=== PATIENT | male | born 1945 | race Native Hawaiian/Other Pacific Islander ===

== ENCOUNTER 2016-03-13 09:31 | Outpatient (CLI) | payer OTHER ==
[~2016-03-13] VITALS: Ht 177.8 cm; Wt 90.7 kg
[~2016-03-13 09:31] MED LIST: ALLO100T22 PO; AMIT25TA22 PO; APAP/HYDROCO1 TAB PO; CALCIUM 600 + D OR; CELLCEPT500 MG PO; CEPH500C20 PO; DIPH2.5T76 PO; DOK100 M1 PO; FISH OIL1000 M1 PO; LEXAPRO10 MG OR; LORAZEPAM1 MG PO; MAGNESIUM400 MG PO; MECLIZINE25 MG PO; METO50TA27 PO; MULTIVITAMIN PO; NEURONTIN 100M100 MG OR; PANT40TA PO; PERCOCET1 TA1 PO; PROGRAF0.5 MG PO; PROGRAF1 MG PO; SIMV20TA2 PO; WARFARIN5 MG OR
[2016-03-13 09:50] VITALS: BP 154/75; TEMP 98.3
[2016-03-13 10:26] LABS: PLATELET COUNT 155 K/uL (142-355)
[2016-03-13 10:52] LABS: POTASSIUM 4.4 mmol/L (3.6-5.2); SODIUM 141 mmol/L (136-145)
== END 2016-03-13 19:07 | disposition home or self-care (01) ==
LOC: INF 09:31
PROVIDERS: Internal Medicine Nephrology
DX: I10 Essential (primary) hypertension (principal); Z94.0 Kidney transplant status; E56.8 Deficiency of other vitamins; D68.9 Coagulation defect, unspecified; I87.2 Venous insufficiency (chronic) (peripheral)
CPT/HCPCS: 36591; 80053; 80061; 80197; 81000; 82306; 83970; 84439; 84443; 85027; 85610; 96374; J1642

== ENCOUNTER 2016-03-27 09:24 | Outpatient (CLI) | payer OTHER ==
[~2016-03-27] VITALS: Ht 177.8 cm; Wt 90.7 kg
[2016-03-27 10:05] VITALS: BP 142/72; TEMP 98.6
== END 2016-03-27 19:01 | disposition home or self-care (01) ==
LOC: INF 09:24
DX: Z94.0 Kidney transplant status (principal); Z79.899 Other long term (current) drug therapy; Z51.81 Encounter for therapeutic drug level monitoring; I87.2 Venous insufficiency (chronic) (peripheral)
CPT/HCPCS: 36591; 80197; 96374; J1642

== ENCOUNTER 2016-05-06 10:23 | Outpatient (CLI) | payer OTHER ==
[~2016-05-06] VITALS: Ht 177.8 cm; Wt 90.7 kg
[2016-05-06 10:35] VITALS: BP 145/74; TEMP 98.8
[2016-05-06 11:53] LABS: PLATELET COUNT 131 K/uL (142-355)
[2016-05-06 12:14] LABS: POTASSIUM 4.3 mmol/L (3.6-5.2)
== END 2016-05-06 19:13 | disposition home or self-care (01) ==
LOC: INF 10:23
PROVIDERS: Internal Medicine Nephrology
DX: I87.2 Venous insufficiency (chronic) (peripheral) (principal); Z94.0 Kidney transplant status; I10 Essential (primary) hypertension; E78.4 Other hyperlipidemia; D68.8 Other specified coagulation defects
CPT/HCPCS: 36591; 80053; 80197; 82570; 84155; 85027; 85610; 96374; J1642

== ENCOUNTER 2016-05-08 10:28 | Outpatient (CLI) | payer OTHER | END 2016-05-08 21:03 | disposition home or self-care (01) | LOC: RESP 10:28 | DX: R05 Cough (principal) | CPT/HCPCS: 94640; 94664 ==

== ENCOUNTER 2016-06-17 08:12 | Outpatient (CLI) | payer OTHER ==
[~2016-06-17] VITALS: Ht 177.8 cm; Wt 90.7 kg
[2016-06-17 09:00] VITALS: BP 127/65; TEMP 98.2
[2016-06-17 09:19] LABS: PLATELET COUNT 149 K/uL (142-355)
[2016-06-17 09:51] LABS: SODIUM 140 mmol/L (136-145)
== END 2016-06-17 19:05 | disposition home or self-care (01) ==
LOC: INF 08:12
PROVIDERS: Internal Medicine Nephrology
DX: I10 Essential (primary) hypertension (principal); E78.5 Hyperlipidemia, unspecified; Z94.0 Kidney transplant status; D68.9 Coagulation defect, unspecified
CPT/HCPCS: 36591; 80053; 80197; 82570; 84155; 85027; 85610; 96374; J1642

== ENCOUNTER 2016-06-26 08:38 | Outpatient (CLI) | payer OTHER | END 2016-06-26 19:06 | disposition home or self-care (01) | LOC: LABW 08:38 | DX: Z94.0 Kidney transplant status (principal); D68.8 Other specified coagulation defects | CPT/HCPCS: 36415; 80197; 85610 ==

== ENCOUNTER 2016-07-31 10:03 | Outpatient (CLI) | payer OTHER ==
[~2016-07-31] VITALS: Ht 177.8 cm; Wt 90.7 kg
[2016-07-31 10:30] VITALS: BP 138/76; TEMP 98
== END 2016-07-31 10:35 | disposition home or self-care (01) ==
LOC: INF 10:03
DX: I87.2 Venous insufficiency (chronic) (peripheral) (principal); D68.8 Other specified coagulation defects
CPT/HCPCS: 36415; 36591; 85610; 96365; J1642

== ENCOUNTER 2016-09-14 17:34 | Emergency (ER) | payer OTHER ==
[~2016-09-14] VITALS: Ht 177.8 cm; Wt 89.8 kg
[2016-09-14 18:27] LABS: PLATELET COUNT 154 K/uL (142-355)
[2016-09-14 18:55] LABS: PARTIAL THROMBOPLASTIN TIME 50.6 SECONDS (24.5-33.6)
[2016-09-14 20:05] VITALS: BP 148/73; TEMP 98.6
== END 2016-09-14 20:07 | disposition home or self-care (01) ==
LOC: ED 17:34
DX: M79.605 Pain in left leg (principal); M79.604 Pain in right leg
CPT/HCPCS: 36415; 85027; 85610; 85730; 96374; 99284; J1885

== ENCOUNTER 2016-09-19 12:10 | Outpatient (CLI) | payer OTHER | END 2016-09-19 13:10 | disposition home or self-care (01) | LOC: LABW 12:10 | DX: D68.8 Other specified coagulation defects (principal) | CPT/HCPCS: 36415; 85610 ==

== ENCOUNTER 2016-10-02 11:26 | Outpatient (CLI) | payer OTHER ==
[2016-10-02 11:51] LABS: PLATELET COUNT 174 K/uL (142-355)
== END 2016-10-02 19:32 | disposition home or self-care (01) ==
LOC: LABW 11:26
PROVIDERS: Internal Medicine Nephrology
DX: I10 Essential (primary) hypertension (principal); Z94.0 Kidney transplant status; E78.4 Other hyperlipidemia
CPT/HCPCS: 36415; 80053; 80197; 82570; 84155; 85027

== ENCOUNTER 2016-10-09 10:33 | Outpatient (CLI) | payer OTHER ==
[2016-10-09 11:17] LABS: PLATELET COUNT 163 K/uL (142-355)
[2016-10-09 11:45] LABS: POTASSIUM 4.7 mmol/L (3.6-5.2)
== END 2016-10-09 11:35 | disposition home or self-care (01) ==
LOC: LABW 10:33
PROVIDERS: Internal Medicine
DX: D68.8 Other specified coagulation defects (principal); R53.83 Other fatigue
CPT/HCPCS: 36415; 80053; 84443; 85027; 85610

== ENCOUNTER 2016-10-22 11:07 | Outpatient (CLI) | payer OTHER ==
[2016-10-22 11:55] VITALS: BP 122/60; TEMP 98.1
[2016-10-22 11:59] LABS: PLATELET COUNT 128 K/uL (142-355)
[2016-10-22 12:47] LABS: POTASSIUM 4.2 mmol/L (3.6-5.2)
== END 2016-10-22 11:55 | disposition home or self-care (01) ==
LOC: INF 11:07
PROVIDERS: Emergency Medicine
DX: I10 Essential (primary) hypertension (principal); Z94.0 Kidney transplant status; E78.4 Other hyperlipidemia; D68.8 Other specified coagulation defects
CPT/HCPCS: 36591; 80053; 80197; 82570; 84155; 85027; 85610; 96374

== ENCOUNTER 2016-12-10 08:54 | Outpatient (CLI) | payer OTHER ==
[2016-12-10 10:36] LABS: PLATELET COUNT 127 K/uL (142-355)
[2016-12-10 10:43] LABS: POTASSIUM 4.4 mmol/L (3.6-5.2)
== END 2016-12-10 10:30 | disposition home or self-care (01) ==
LOC: INF 08:54
PROVIDERS: Internal Medicine Nephrology
DX: Z94.0 Kidney transplant status (principal); I10 Essential (primary) hypertension; E78.4 Other hyperlipidemia; D68.8 Other specified coagulation defects; R06.02 Shortness of breath
CPT/HCPCS: 36591; 36600; 80053; 80197; 82570; 82805; 84155; 85027; 85610

== ENCOUNTER 2017-01-15 09:59 | Outpatient (CLI) | payer OTHER | END 2017-01-15 11:00 | disposition home or self-care (01) | LOC: LABW 09:59 | DX: I10 Essential (primary) hypertension (principal); Z79.01 Long term (current) use of anticoagulants; Z51.81 Encounter for therapeutic drug level monitoring; Z94.0 Kidney transplant status; D68.8 Other specified coagulation defects | CPT/HCPCS: 36415; 80197; 82550; 84443; 85610 ==

== ENCOUNTER 2017-02-06 11:56 | Outpatient (CLI) | payer OTHER | END 2017-02-06 12:36 | disposition home or self-care (01) | LOC: INF 11:56 | DX: D68.8 Other specified coagulation defects (principal) | CPT/HCPCS: 36591; 85610; 96374 ==

== ENCOUNTER 2017-04-14 09:58 | Outpatient (CLI) | payer OTHER ==
[2017-04-14 10:40] VITALS: BP 144/73; TEMP 97.9
[2017-04-14 11:02] LABS: PLATELET COUNT 149 K/uL (142-355)
== END 2017-04-14 10:45 | disposition home or self-care (01) ==
LOC: INF 09:58
PROVIDERS: Emergency Medicine
DX: Z79.01 Long term (current) use of anticoagulants (principal); Z51.81 Encounter for therapeutic drug level monitoring; Z94.0 Kidney transplant status; I10 Essential (primary) hypertension; D68.8 Other specified coagulation defects
CPT/HCPCS: 36591; 80053; 80061; 80197; 85027; 85610; 96523

== ENCOUNTER 2017-06-05 08:50 | Outpatient (CLI) | payer OTHER ==
[2017-06-05 09:15] VITALS: BP 148/77; TEMP 98
== END 2017-06-05 22:24 | disposition home or self-care (01) ==
LOC: INF 08:50
DX: D68.8 Other specified coagulation defects (principal)
CPT/HCPCS: 36591; 85610; 96374

== ENCOUNTER 2017-07-14 13:13 | Outpatient (CLI) | payer OTHER ==
[2017-07-14 13:40] VITALS: BP 133/70; TEMP 97.7
== END 2017-07-14 14:04 | disposition home or self-care (01) ==
LOC: INF 13:13
DX: I87.2 Venous insufficiency (chronic) (peripheral) (principal); D68.8 Other specified coagulation defects
CPT/HCPCS: 36591; 85610; 96374

== ENCOUNTER 2017-08-17 10:14 | Outpatient (CLI) | payer OTHER ==
[2017-08-17 11:28] LABS: PLATELET COUNT 158 K/uL (142-355)
[2017-08-17 11:45] LABS: POTASSIUM 4.1 mmol/L (3.6-5.2)
== END 2017-08-17 19:45 | disposition home or self-care (01) ==
LOC: INF 10:14
DX: I10 Essential (primary) hypertension (principal); E78.00 Pure hypercholesterolemia, unspecified; Z94.0 Kidney transplant status; D68.8 Other specified coagulation defects
CPT/HCPCS: 36591; 80053; 80061; 80197; 81000; 82570; 84155; 85027; 96374

== ENCOUNTER 2017-11-09 09:37 | Outpatient (CLI) | payer OTHER | END 2017-11-09 23:28 | disposition home or self-care (01) | LOC: INF 09:37 | DX: D68.9 Coagulation defect, unspecified (principal) | CPT/HCPCS: 85610; 96374; J1642 ==

== ENCOUNTER 2017-11-13 13:00 | Outpatient (CLI) | payer OTHER | END 2017-11-13 19:08 | disposition home or self-care (01) | LOC: LABW 13:00 | DX: D68.9 Coagulation defect, unspecified (principal) | CPT/HCPCS: 36415; 85610 ==

== ENCOUNTER 2017-12-11 09:52 | Outpatient (CLI) | payer OTHER | END 2017-12-11 19:26 | disposition home or self-care (01) | LOC: INF 09:52 | DX: I87.2 Venous insufficiency (chronic) (peripheral) (principal); D68.9 Coagulation defect, unspecified | CPT/HCPCS: 85610; 96374; J1642 ==

== ENCOUNTER 2017-12-16 14:23 | Outpatient (CLI) | payer OTHER | END 2017-12-16 21:22 | disposition home or self-care (01) | LOC: RESP 14:23 | DX: R06.00 Dyspnea, unspecified (principal) | CPT/HCPCS: 36600; 82805 ==

== ENCOUNTER 2018-01-06 10:34 | Outpatient (CLI) | payer OTHER ==
[2018-01-06 12:29] LABS: PLATELET COUNT 159 K/uL (142-355)
[2018-01-06 13:00] LABS: POTASSIUM 4.2 mmol/L (3.6-5.2)
== END 2018-01-06 11:03 | disposition home or self-care (01) ==
LOC: INF 10:34
PROVIDERS: Internal Medicine Nephrology
DX: D68.8 Other specified coagulation defects (principal); I87.2 Venous insufficiency (chronic) (peripheral); Z94.0 Kidney transplant status; R53.83 Other fatigue
CPT/HCPCS: 36591; 80053; 80197; 83735; 84443; 85027; 96374

== ENCOUNTER 2018-01-11 12:01 | Outpatient (CLI) | payer OTHER | END 2018-01-11 22:32 | disposition home or self-care (01) | LOC: LABW 12:01 | DX: D68.9 Coagulation defect, unspecified (principal) | CPT/HCPCS: 36415; 85610 ==

== ENCOUNTER 2018-02-22 10:10 | Outpatient (CLI) | payer OTHER ==
[2018-02-22 10:20] VITALS: BP 144/72; TEMP 98.8
== END 2018-02-22 20:22 | disposition home or self-care (01) ==
LOC: INF 10:10
DX: D68.9 Coagulation defect, unspecified (principal)
CPT/HCPCS: 36591; 85610; 96374

== ENCOUNTER 2018-02-24 11:31 | Outpatient (CLI) | payer OTHER | END 2018-02-24 22:10 | disposition home or self-care (01) | LOC: LAB 11:31 | DX: R19.7 Diarrhea, unspecified (principal) | CPT/HCPCS: 82272; 83630; 87015; 87045; 87324; 87328; 87329; 87449; 87507; 87899 ==

== ENCOUNTER 2018-03-17 09:36 | Outpatient (CLI) | payer OTHER | END 2018-03-17 23:00 | disposition home or self-care (01) | LOC: CT 09:36 | DX: M89.8X8 Other specified disorders of bone, other site (principal); R10.2 Pelvic and perineal pain ==

== ENCOUNTER 2018-03-30 16:35 | Outpatient (CLI) | payer OTHER | END 2018-03-30 19:25 | disposition home or self-care (01) | LOC: LABW 16:35 | DX: R19.7 Diarrhea, unspecified (principal) | CPT/HCPCS: 83630; 87015; 87045; 87206; 87324; 87328; 87329; 87449; 87507; 87899 ==

== ENCOUNTER 2018-04-07 09:55 | Outpatient (CLI) | payer OTHER ==
[2018-04-07 11:00] VITALS: BP 147/75; TEMP 98
== END 2018-04-07 11:30 | disposition home or self-care (01) ==
LOC: INF 09:55
DX: D68.9 Coagulation defect, unspecified (principal); Z43.8 Encounter for attention to other artificial openings
CPT/HCPCS: 36591; 85610; 96374

== ENCOUNTER 2018-04-28 08:28 | Outpatient (CLI) | payer OTHER ==
[2018-04-28 08:45] VITALS: BP 156/82; TEMP 97.9
== END 2018-04-28 09:20 | disposition home or self-care (01) ==
LOC: INF 08:28
DX: D68.9 Coagulation defect, unspecified (principal); Z94.0 Kidney transplant status
CPT/HCPCS: 36591; 80197; 85610; 96374

== ENCOUNTER 2018-05-17 08:20 | Outpatient (CLI) | payer OTHER ==
[2018-05-17 13:22] VITALS: BP 157/76; TEMP 97.8
== END 2018-05-17 13:40 | disposition home or self-care (01) ==
LOC: INF 08:20
DX: D68.9 Coagulation defect, unspecified (principal)
CPT/HCPCS: 36591; 85610; 96374

== ENCOUNTER 2018-05-28 09:08 | Outpatient (CLI) | payer OTHER | END 2018-05-28 19:48 | disposition home or self-care (01) | LOC: LABW 09:08 | DX: D68.8 Other specified coagulation defects (principal) | CPT/HCPCS: 36415; 85610 ==

== ENCOUNTER 2018-06-04 07:41 | Outpatient (CLI) | payer OTHER ==
[2018-06-04 08:52] VITALS: BP 145/75; TEMP 98.4
[2018-06-04 09:48] LABS: POTASSIUM 3.7 mmol/L (3.6-5.2)
[2018-06-04 10:01] LABS: PLATELET COUNT 154 K/uL (142-355)
== END 2018-06-04 19:29 | disposition home or self-care (01) ==
LOC: INF 07:41
PROVIDERS: Internal Medicine Nephrology
DX: Z94.0 Kidney transplant status (principal); I10 Essential (primary) hypertension; E78.00 Pure hypercholesterolemia, unspecified; D68.8 Other specified coagulation defects
CPT/HCPCS: 36591; 80053; 80061; 82570; 83970; 84100; 84155; 85027; 85610; 96374

== ENCOUNTER 2018-07-29 11:52 | Outpatient (CLI) | payer OTHER ==
[2018-07-29 13:35] VITALS: BP 137/68; TEMP 97.9
== END 2018-07-29 19:44 | disposition home or self-care (01) ==
LOC: INF 11:52
DX: D68.9 Coagulation defect, unspecified (principal); Z95.828 Presence of other vascular implants and grafts; I87.2 Venous insufficiency (chronic) (peripheral)
CPT/HCPCS: 36591; 85610; 96374

== ENCOUNTER 2018-08-30 10:44 | Outpatient (CLI) | payer OTHER | END 2018-08-30 11:20 | disposition home or self-care (01) | LOC: INF 10:44 | DX: Z95.828 Presence of other vascular implants and grafts (principal); D68.9 Coagulation defect, unspecified | CPT/HCPCS: 36591; 85610; 96374 ==

== ENCOUNTER 2018-10-05 09:03 | Outpatient (CLI) | payer OTHER ==
[2018-10-05 09:10] VITALS: BP 122/78; TEMP 97.8
[2018-10-05 10:32] LABS: PLATELET COUNT 162 K/uL (142-355)
[2018-10-05 10:41] LABS: POTASSIUM 4.1 mmol/L (3.6-5.2)
== END 2018-10-05 09:38 | disposition home or self-care (01) ==
LOC: INF 09:03
PROVIDERS: Family Medicine
DX: Z95.828 Presence of other vascular implants and grafts (principal)
CPT/HCPCS: 36591; 80053; 80197; 82570; 84100; 84155; 85027; 85610; 96374

== ENCOUNTER 2018-10-12 10:05 | Outpatient (CLI) | payer OTHER | END 2018-10-12 23:59 | disposition home or self-care (01) | LOC: LABW 10:05 | DX: D68.8 Other specified coagulation defects (principal) | CPT/HCPCS: 36415; 85610 ==

== ENCOUNTER 2018-10-29 08:40 | Outpatient (CLI) | payer OTHER | END 2018-10-29 23:06 | disposition home or self-care (01) | LOC: LABW 08:40 | DX: D68.8 Other specified coagulation defects (principal) | CPT/HCPCS: 36415; 85610 ==

== ENCOUNTER 2018-11-15 09:08 | Outpatient (CLI) | payer OTHER ==
[2018-11-15 09:19] VITALS: BP 141/69; TEMP 97.7
== END 2018-11-15 09:35 | disposition home or self-care (01) ==
LOC: INF 09:08
DX: D68.9 Coagulation defect, unspecified (principal); Z95.828 Presence of other vascular implants and grafts
CPT/HCPCS: 36591; 85610; 96374

== ENCOUNTER 2018-11-30 13:17 | Outpatient (CLI) | payer OTHER | END 2018-11-30 19:23 | disposition home or self-care (01) | LOC: LABW 13:17 | DX: D68.8 Other specified coagulation defects (principal) | CPT/HCPCS: 85610 ==

== ENCOUNTER 2019-01-19 08:27 | Outpatient (CLI) | payer OTHER ==
[2019-01-19 08:35] VITALS: BP 145/70; TEMP 98
== END 2019-01-19 20:36 | disposition home or self-care (01) ==
LOC: INF 08:27
DX: Z95.828 Presence of other vascular implants and grafts (principal); D68.9 Coagulation defect, unspecified
CPT/HCPCS: 36591; 85610; 96374

== ENCOUNTER 2019-02-14 08:28 | Outpatient (CLI) | payer OTHER ==
[2019-02-14 09:30] VITALS: BP 159/73; TEMP 98.3
[2019-02-14 11:01] LABS: PLATELET COUNT 135 K/uL (142-355)
[2019-02-14 11:19] LABS: POTASSIUM 4.1 mmol/L (3.6-5.2)
== END 2019-02-14 10:00 | disposition home or self-care (01) ==
LOC: INF 08:28
PROVIDERS: Internal Medicine
DX: E56.8 Deficiency of other vitamins (principal); E78.00 Pure hypercholesterolemia, unspecified; E78.49 Other hyperlipidemia; I10 Essential (primary) hypertension; M10.9 Gout, unspecified; R53.83 Other fatigue; Z79.899 Other long term (current) drug therapy; Z94.0 Kidney transplant status; Z79.01 Long term (current) use of anticoagulants; D68.8 Other specified coagulation defects
CPT/HCPCS: 36415; 36591; 80053; 80061; 80197; 81000; 82570; 83970; 84100; 84155; 85027; 85610; 96374

== ENCOUNTER 2019-03-01 09:05 | Outpatient (CLI) | payer OTHER | END 2019-03-01 19:42 | disposition home or self-care (01) | LOC: LABW 09:05 | DX: E56.8 Deficiency of other vitamins (principal); E78.00 Pure hypercholesterolemia, unspecified; E78.49 Other hyperlipidemia; I10 Essential (primary) hypertension; M10.9 Gout, unspecified; R53.83 Other fatigue; Z79.899 Other long term (current) drug therapy; Z94.0 Kidney transplant status; Z79.01 Long term (current) use of anticoagulants | CPT/HCPCS: 36415; 80197 ==

== ENCOUNTER 2019-03-21 11:29 | Outpatient (CLI) | payer OTHER ==
[2019-03-21 11:35] VITALS: BP 145/69; TEMP 97.9
== END 2019-03-21 12:00 | disposition home or self-care (01) ==
LOC: INF 11:29
DX: D68.9 Coagulation defect, unspecified (principal); Z95.828 Presence of other vascular implants and grafts
CPT/HCPCS: 36591; 85610; 96374

== ENCOUNTER 2019-04-28 09:41 | Outpatient (CLI) | payer OTHER ==
[2019-04-28 09:30] VITALS: BP 128/78; TEMP 98
== END 2019-04-28 09:45 | disposition home or self-care (01) ==
LOC: INF 09:41
DX: D68.9 Coagulation defect, unspecified (principal)
CPT/HCPCS: 96523

== ENCOUNTER 2019-07-06 07:59 | Outpatient (CLI) | payer OTHER ==
[2019-07-06 09:11] LABS: POTASSIUM 3.9 mmol/L (3.6-5.2)
[2019-07-06 10:01] LABS: PLATELET COUNT 154 K/uL (142-355)
== END 2019-07-06 08:35 | disposition home or self-care (01) ==
LOC: INF 07:59
PROVIDERS: Internal Medicine
DX: E56.8 Deficiency of other vitamins (principal); E78.00 Pure hypercholesterolemia, unspecified; E78.5 Hyperlipidemia, unspecified; I10 Essential (primary) hypertension; M10.9 Gout, unspecified; R53.83 Other fatigue; Z79.899 Other long term (current) drug therapy; Z94.0 Kidney transplant status; Z79.01 Long term (current) use of anticoagulants
CPT/HCPCS: 36415; 36591; 80053; 80197; 82043; 82570; 83970; 85027; 85610; 96374

== ENCOUNTER 2019-08-01 07:47 | Outpatient (CLI) | payer OTHER ==
[2019-08-01 08:05] VITALS: BP 146/65; TEMP 98.2
[2019-08-01 10:33] LABS: POTASSIUM 3.8 mmol/L (3.6-5.2)
== END 2019-08-01 08:30 | disposition home or self-care (01) ==
LOC: INF 07:47
PROVIDERS: Internal Medicine
DX: E56.8 Deficiency of other vitamins (principal); E78.00 Pure hypercholesterolemia, unspecified; E78.49 Other hyperlipidemia; I10 Essential (primary) hypertension; M10.9 Gout, unspecified; R53.83 Other fatigue; Z79.899 Other long term (current) drug therapy; Z94.0 Kidney transplant status; D68.8 Other specified coagulation defects
CPT/HCPCS: 36591; 80048; 80197; 85610; 96374

== ENCOUNTER 2019-09-02 08:28 | Outpatient (CLI) | payer OTHER ==
[2019-09-02 08:30] VITALS: BP 141/68; TEMP 97.9
== END 2019-09-02 08:50 | disposition home or self-care (01) ==
LOC: INF 08:28
PROVIDERS: ATTEND Internal Medicine
DX: D68.9 Coagulation defect, unspecified (principal); Z95.828 Presence of other vascular implants and grafts
CPT/HCPCS: 36591; 85610; 96374

== ENCOUNTER 2019-09-13 08:42 | Outpatient (CLI) | payer OTHER ==
[2019-09-13 08:45] VITALS: BP 123/57; TEMP 97.8
[2019-09-13 10:07] LABS: PARTIAL THROMBOPLASTIN TIME 60.5 SECONDS (24.5-33.6)
== END 2019-09-13 09:05 | disposition home or self-care (01) ==
LOC: INF 08:42
PROVIDERS: Internal Medicine Endocrinology, Diabetes & Metabolism
DX: Z79.01 Long term (current) use of anticoagulants (principal); Z51.81 Encounter for therapeutic drug level monitoring; Z01.812 Encounter for preprocedural laboratory examination
CPT/HCPCS: 36591; 85610; 85730; 96374

== ENCOUNTER 2019-09-27 07:57 | Outpatient (CLI) | payer OTHER ==
[2019-09-27 08:44] LABS: POTASSIUM 3.6 mmol/L (3.6-5.2)
[2019-09-27 09:44] LABS: PLATELET COUNT 156 K/uL (142-355)
== END 2019-09-27 20:42 | disposition home or self-care (01) ==
LOC: LABW 07:57
PROVIDERS: Internal Medicine Nephrology
DX: Z79.899 Other long term (current) drug therapy (principal); E83.49 Other disorders of magnesium metabolism; E83.39 Other disorders of phosphorus metabolism; R79.89 Other specified abnormal findings of blood chemistry; N28.89 Other specified disorders of kidney and ureter; T86.19 Other complication of kidney transplant
CPT/HCPCS: 36415; 80048; 80061; 80076; 80197; 81000; 82570; 83735; 84100; 84155; 85027

== ENCOUNTER 2019-10-04 09:20 | Outpatient (CLI) | payer OTHER ==
[2019-10-04 10:18] LABS: PLATELET COUNT 160 K/uL (142-355)
== END 2019-10-04 19:39 | disposition home or self-care (01) ==
LOC: LABW 09:20
PROVIDERS: Internal Medicine Nephrology
DX: Z79.899 Other long term (current) drug therapy (principal); E83.49 Other disorders of magnesium metabolism; E83.39 Other disorders of phosphorus metabolism; R79.89 Other specified abnormal findings of blood chemistry; N28.89 Other specified disorders of kidney and ureter; Z94.0 Kidney transplant status; D68.8 Other specified coagulation defects
CPT/HCPCS: 80061; 80076; 80197; 81000; 82570; 83735; 84100; 84155; 85027; 85610

== ENCOUNTER 2019-10-17 10:12 | Outpatient (CLI) | payer OTHER ==
[2019-10-17 10:50] VITALS: BP 148/81; TEMP 98.8
[2019-10-17 11:31] LABS: PLATELET COUNT 168 K/uL (142-355)
[2019-10-17 11:42] LABS: POTASSIUM 3.7 mmol/L (3.6-5.2)
== END 2019-10-17 11:15 | disposition home or self-care (01) ==
LOC: INF 10:12
PROVIDERS: Internal Medicine
DX: Z94.0 Kidney transplant status (principal)
CPT/HCPCS: 36591; 80048; 80061; 80076; 80197; 81000; 82570; 83735; 84100; 84155; 85027; 85610; 96374

== ENCOUNTER 2019-11-04 07:56 | Outpatient (CLI) | payer OTHER ==
[2019-11-04 08:37] LABS: POTASSIUM 3.9 mmol/L (3.6-5.2)
[2019-11-04 09:56] LABS: PLATELET COUNT 119 K/uL (142-355)
== END 2019-11-04 23:23 | disposition home or self-care (01) ==
LOC: LABW 07:56
PROVIDERS: Internal Medicine Nephrology
DX: E56.8 Deficiency of other vitamins (principal); E78.00 Pure hypercholesterolemia, unspecified; E78.49 Other hyperlipidemia; I10 Essential (primary) hypertension; M10.9 Gout, unspecified; R53.83 Other fatigue; Z79.899 Other long term (current) drug therapy; Z94.0 Kidney transplant status; G47.33 Obstructive sleep apnea (adult) (pediatric); G51.0 Bell's palsy; Z79.01 Long term (current) use of anticoagulants; D68.8 Other specified coagulation defects; E83.49 Other disorders of magnesium metabolism; E83.39 Other disorders of phosphorus metabolism; R79.89 Other specified abnormal findings of blood chemistry; N28.89 Other specified disorders of kidney and ureter
CPT/HCPCS: 36415; 80053; 80061; 80197; 81000; 82570; 83735; 83970; 84100; 84155; 85027

== ENCOUNTER 2019-11-10 10:55 | Outpatient (CLI) | payer OTHER | END 2019-11-10 23:37 | disposition home or self-care (01) | LOC: LAB 10:55 | DX: D68.8 Other specified coagulation defects (principal) | CPT/HCPCS: 36415; 85610 ==

== ENCOUNTER 2019-11-25 07:40 | Outpatient (CLI) | payer OTHER ==
[2019-11-25 10:01] LABS: PLATELET COUNT 141 K/uL (142-355)
[2019-11-25 10:15] LABS: POTASSIUM 3.7 mmol/L (3.6-5.2)
== END 2019-11-25 08:30 | disposition home or self-care (01) ==
LOC: INF 07:40
PROVIDERS: Internal Medicine
DX: Z94.0 Kidney transplant status (principal); D68.9 Coagulation defect, unspecified; Z79.899 Other long term (current) drug therapy
CPT/HCPCS: 36591; 80069; 80197; 81000; 82570; 83735; 84155; 85027; 85610; 96374

== ENCOUNTER 2020-01-03 09:26 | Outpatient (CLI) | payer OTHER ==
[2020-01-03 09:40] VITALS: BP 153/80; TEMP 98
[2020-01-03 10:17] LABS: PLATELET COUNT 155 K/uL (142-355)
[2020-01-03 10:39] LABS: POTASSIUM 3.9 mmol/L (3.6-5.2)
== END 2020-01-03 10:10 | disposition home or self-care (01) ==
LOC: INF 09:26
PROVIDERS: ATTEND Internal Medicine Nephrology
DX: D68.9 Coagulation defect, unspecified (principal); Z94.0 Kidney transplant status
CPT/HCPCS: 36591; 80048; 80061; 80076; 80197; 81000; 82570; 83735; 84100; 84155; 85027; 96374

== ENCOUNTER 2020-01-04 09:36 | Outpatient (CLI) | payer OTHER | END 2020-01-04 20:42 | disposition home or self-care (01) | LOC: LABW 09:36 | PROVIDERS: ATTEND Internal Medicine | DX: D68.8 Other specified coagulation defects (principal) | CPT/HCPCS: 36415; 85610 ==

== ENCOUNTER 2020-01-16 09:29 | Inpatient (IN) | payer OTHER ==
[~2020-01-16] VITALS: Ht 177.8 cm; Wt 108.1 kg
[2020-01-16 09:35] VITALS: BP 109/88; TEMP 98.6
[2020-01-16 10:25] LABS: PLATELET COUNT 158 K/uL (142-355)
[2020-01-16 11:31] LABS: PARTIAL THROMBOPLASTIN TIME 77.5 SECONDS (24.5-33.6)
[2020-01-16 16:21] VITALS: BP 157/85; TEMP 98; Ht 177.8 cm; Wt 108.1 kg
[2020-01-16] MEDS ORDERED: PRED10TA27 PO (17:51)
[2020-01-16] MEDS ORDERED: AMLODIPINE BESYLATE PO (17:52)
[2020-01-16] MEDS ORDERED: METOPROLOL25 M1 PO (17:53)
[2020-01-16] MEDS ORDERED: GABA300C2 PO (17:54)
[2020-01-16] MEDS ORDERED: JANTOVEN5 MG PO (18:02)
[2020-01-16] MEDS ORDERED: LORA2TAB7 PO (18:03)
[2020-01-16] MEDS ORDERED: PREVAGEN10 MG PO (18:04)
[2020-01-16 20:00] VITALS: BP 149/81; TEMP 98.6
[2020-01-16 23:31] VITALS: BP 140/69; TEMP 100
[2020-01-17] VITALS (22 sets, daily range): BP systolic 15–161; BP diastolic 50–87; TEMP 98–100.5
[2020-01-17 05:35] LABS: PLATELET COUNT 153 K/uL (142-355)
[2020-01-18] VITALS (20 sets, daily range): BP systolic 97–121; BP diastolic 63–80; TEMP 97.5–98.3
[2020-01-18 06:12] LABS: POTASSIUM 4.7 mmol/L (3.6-5.2)
[2020-01-18 06:36] LABS: PLATELET COUNT 138 K/uL (142-355)
[2020-01-19] VITALS (22 sets, daily range): BP systolic 101–132; BP diastolic 56–92; TEMP 97.3–98.3
[2020-01-19 05:39] LABS: PLATELET COUNT 167 K/uL (142-355)
[2020-01-19 06:04] LABS: POTASSIUM 4.9 mmol/L (3.6-5.2)
[2020-01-20] VITALS (24 sets, daily range): BP systolic 104–138; BP diastolic 64–98; TEMP 96.9–97.9
[2020-01-20 06:20] LABS: POTASSIUM 5.2 mmol/L (3.6-5.2)
[2020-01-21] VITALS (21 sets, daily range): BP systolic 102–151; BP diastolic 63–95; TEMP 97.6–98.1
[2020-01-21 06:34] LABS: POTASSIUM 4.8 mmol/L (3.6-5.2)
[2020-01-22] VITALS (18 sets, daily range): BP systolic 106–150; BP diastolic 67–92; TEMP 97.3–98.4
[2020-01-22 05:54] LABS: PLATELET COUNT 222 K/uL (142-355)
[2020-01-22 06:50] LABS: POTASSIUM 4.4 mmol/L (3.6-5.2)
[2020-01-23] VITALS (8 sets, daily range): BP systolic 115–138; BP diastolic 68–91; TEMP 97.7–98.7
[2020-01-23 05:36] LABS: PLATELET COUNT 189 K/uL (142-355)
[2020-01-23 05:53] LABS: POTASSIUM 4.2 mmol/L (3.6-5.2)
[2020-01-23] MEDS ORDERED: DOXYCYCLINE100 MG PO (12:01)
== END 2020-01-23 13:55 | disposition home or self-care (01) | DRG 602 ==
LOC: ED 09:29 → ICU 13:28 → MED/SURG 13:28 → ICU 01-17 03:59 → UNDODEPER 01-17 14:34 → PCU 01-22 13:58
PROVIDERS: ADMIT Emergency Medicine Emergency Medical Services; ATTEND Internal Medicine Endocrinology, Diabetes & Metabolism
DX: L03.116 Cellulitis of left lower limb (principal); U07.1 COVID-19; Z94.0 Kidney transplant status; E78.49 Other hyperlipidemia; I10 Essential (primary) hypertension; K21.9 Gastro-esophageal reflux disease without esophagitis; Z87.820 Personal history of traumatic brain injury; Z79.01 Long term (current) use of anticoagulants; F32.89 Other specified depressive episodes; I25.10 Atherosclerotic heart disease of native coronary artery without angina pectoris
CPT/HCPCS: 36415; 36591; 80048; 80053; 83605; 85027; 85610; 85730; 87040; 87635; 93005; 94760; 96360; 96361; 96365; 99284; C1768; J0456; J0696; J1100; J1642; J1815; J1940; J2060; J3490; U0003

== ENCOUNTER 2020-01-30 17:06 | Emergency (ER) | payer OTHER ==
[~2020-01-30] VITALS: Ht 177.8 cm; Wt 108.0 kg
[~2020-01-30 17:06] MED LIST changes: +AMLODIPINE BESYLATE PO; +DOXYCYCLINE100 MG PO; +GABA300C2 PO; +JANTOVEN5 MG PO; +LORA2TAB7 PO; +METOPROLOL25 M1 PO; +PRED10TA27 PO; +PREVAGEN10 MG PO
[2020-01-30 17:56] LABS: PLATELET COUNT 154 K/uL (142-355)
[2020-01-30 18:02] LABS: POTASSIUM 4.7 mmol/L (3.6-5.2)
[2020-01-31 01:28] VITALS: BP 122/77; TEMP 98.1
== END 2020-01-31 01:30 | disposition short-term general hospital (02) ==
LOC: ED 17:06
PROVIDERS: Emergency Medicine Emergency Medical Services
PROC: 0T9B70Z Drainage of Bladder with Drainage Device, Via Natural or Artificial Opening (ICD-10-PCS; principal; 2020-01-30)
PROC: 0BH17EZ Insertion of Endotracheal Airway into Trachea, Via Natural or Artificial Opening (ICD-10-PCS; 2020-01-30)
PROC: 5A1935Z Respiratory Ventilation, Less than 24 Consecutive Hours (ICD-10-PCS; 2020-01-30)
DX: J96.00 Acute respiratory failure, unspecified whether with hypoxia or hypercapnia (principal); J18.9 Pneumonia, unspecified organism; F17.210 Nicotine dependence, cigarettes, uncomplicated
CPT/HCPCS: 31500; 36600; 51702; 80053; 82805; 83880; 84484; 85027; 85610; 87040; 93005; 94002; 96365; 96366; 96372; 96375; 96376; 99285; J0282; J0330; J1650; J1940; J2250; J2543; J2930; J3010; J3490

== ENCOUNTER 2020-03-25 20:30 | Inpatient (IN) | payer OTHER ==
[~2020-03-25] VITALS: Ht 177.8 cm; Wt 91.7 kg
[2020-03-25] VITALS (10 sets, daily range): BP systolic 94–127; BP diastolic 60–73; TEMP 97.6–98.4
[2020-03-25 20:50] LABS: PLATELET COUNT 235 K/uL (142-355)
[2020-03-25 21:07] LABS: POTASSIUM 5.6 mmol/L (3.6-5.2); SODIUM 135 mmol/L (136-145)
[2020-03-25 21:13] LABS: PARTIAL THROMBOPLASTIN TIME 28.6 SECONDS (24.5-33.6)
[2020-03-26 04:00] VITALS: BP 117/66; TEMP 97.9
[2020-03-26 08:00] VITALS: BP 115/71; TEMP 98.4
[2020-03-26 12:00] VITALS: BP 108/57; TEMP 98.6
[2020-03-26 16:00] VITALS: BP 112/61; TEMP 98.3
== END 2020-03-26 17:58 | disposition home health service (06) | DRG 178 ==
LOC: ED 20:30 → MED/SURG 22:00
PROVIDERS: ADMIT Hospitalist; ATTEND Internal Medicine Endocrinology, Diabetes & Metabolism
DX: U07.1 COVID-19 (principal); J96.10 Chronic respiratory failure, unspecified whether with hypoxia or hypercapnia; N17.8 Other acute kidney failure; J81.1 Chronic pulmonary edema; E86.0 Dehydration; E87.5 Hyperkalemia; R00.0 Tachycardia, unspecified; K21.9 Gastro-esophageal reflux disease without esophagitis; I10 Essential (primary) hypertension; F03.90 Unspecified dementia, unspecified severity, without behavioral disturbance, psychotic disturbance, mood disturbance, and anxiety; Z86.73 Personal history of transient ischemic attack (TIA), and cerebral infarction without residual deficits; E11.9 Type 2 diabetes mellitus without complications; I25.10 Atherosclerotic heart disease of native coronary artery without angina pectoris; Z93.0 Tracheostomy status; Z93.3 Colostomy status
CPT/HCPCS: 36415; 36591; 36600; 51702; 80053; 81000; 82550; 82805; 83880; 84484; 85027; 85610; 85730; 87088; 87635; 93005; 94760; 96360; 96374; 96375; 99284; J1100; J1642; J1650; J1940; J1956; J3490; U0003

== ENCOUNTER 2020-03-29 19:21 | Emergency (ER) | payer OTHER ==
[~2020-03-29] VITALS: Ht 177.8 cm; Wt 79.8 kg
[2020-03-29 19:21] VITALS: TEMP 98.7
[2020-03-29 20:41] LABS: POTASSIUM 5.2 mmol/L (3.6-5.2); SODIUM 136 mmol/L (136-145)
[2020-03-29 20:44] LABS: PLATELET COUNT 423 K/uL (142-355)
[2020-03-29 20:53] LABS: PARTIAL THROMBOPLASTIN TIME 26.1 SECONDS (24.5-33.6)
[2020-03-30 01:05] VITALS: BP 95/46
== END 2020-03-30 01:05 | disposition home health service (06) ==
LOC: ED 19:21
PROVIDERS: Hospitalist
DX: I50.9 Heart failure, unspecified (principal); I48.20 Chronic atrial fibrillation, unspecified; R06.09 Other forms of dyspnea; R79.89 Other specified abnormal findings of blood chemistry; Z20.828 Contact with and (suspected) exposure to other viral communicable diseases
CPT/HCPCS: 36415; 80053; 82550; 82805; 83605; 83880; 84484; 85027; 85610; 85730; 87040; 87635; 93005; 96365; 96375; 96376; 99284; J0696; J1160; J1642; J3490; U0003